=== PATIENT | male | born 1955 | race Two or more races ===

== ENCOUNTER 2018-02-18 14:44 | Emergency (ER) | payer SELFPAY ==
[~2018-02-18] VITALS: Ht 175.3 cm; Wt 74.8 kg
[2018-02-18 14:54] VITALS: BP 150/95
== END 2018-02-18 15:19 ==
LOC: ER 15:17
DX: F10.120 Alcohol abuse with intoxication, uncomplicated (principal); V48.5XXA Car driver injured in noncollision transport accident in traffic accident, initial encounter; Y93.89 Activity, other specified; Y99.8 Other external cause status; Y92.89 Other specified places as the place of occurrence of the external cause